=== PATIENT | male | born 1965 | race Caucasian/White ===

== ENCOUNTER 2021-11-16 12:47 | Observation (INO) ==
[2021-11-16 14:11] LABS: Basophils % 0.5 %; Eosinophils # 0.1 K/mcL (0.0-0.6); Eosinophils % 1.3 %; Hematocrit 46.6 % (37.5-50.1); Hemoglobin 15.9 g/dL (12.9-16.9); Immature Granulocytes % 0.4 % (0-4); Lymphocytes # 1.9 K/mcL (0.6-4.6); Lymphocytes % 23.4 %; Mean Corpuscular HGB Conc 34.1 g/dL (31.6-35.5); Mean Corpuscular Hemoglobin 30.8 pg (28.0-33.3); Mean Corpuscular Volume 90.1 fL (83.0-100.0); Mean Platelet Volume 9.6 fL (9.4-12.4); Monocytes # 0.6 K/mcL (0.0-1.3); Monocytes % 7.9 %; Neutrophils # 5.3 K/mcL (1.6-8.9); Platelet Count 236 K/mcL (140-400); Red Blood Count 5.17 M/mcL (4.19-5.50); Red Cell Distribution Width 12.9 % (11.5-14.5); Segmented Neutrophils % 66.5 %
[2021-11-16 14:40] LABS: BUN/Creatinine Ratio 19 (6-26); Blood Urea Nitrogen 20 mg/dL (6-20); Calcium 9.8 mg/dL (8.6-10.3); Carbon Dioxide 21 mEq/L (23-29); Chloride 103 mEq/L (98-107); Glucose 129 mg/dL (70-105); Osmolality,Calculated 286 (280-300); Potassium 3.9 mEq/L (3.5-5.1); Sodium 136 mEq/L (136-145); Troponin I < 0.03 ng/mL (< 0.04); eGFR For African Americans > 60 (> 60); eGFR For Non-African Americans > 60 (> 60)
[2021-11-16] MEDS ORDERED: Ketorolac 30 MG/ML VIAL IVP ONE (16:02)
[2021-11-16] MEDS ORDERED: Metoclopramide 10 MG/2 ML VIAL IVP ONE (16:02)
[2021-11-16] MEDS ORDERED: Isovue-370 500 ML BOTTLE IVP ONE (16:02)
[2021-11-16] MEDS ORDERED: 0.9 % Sodium Chloride 1,000 ML IV ONE (16:08)
[2021-11-16] MEDS ORDERED: Ondansetron 4 MG/2 ML VIAL IVP PRN (18:04)
[2021-11-16] MEDS ORDERED: Perflutren Lipid Microsphere 1.3 ML in 0.9 % Sodium Chloride 8.7 ML IVP PRN (18:04)
[2021-11-16] MEDS ORDERED: Nitroglycerin 0.4 MG TAB.SUBL SL PRN (18:04)
[2021-11-16] MEDS ORDERED: Naloxone 0.4 MG/ML INJ IVP PRN (18:04)
[2021-11-16] MEDS: Metoprolol XL (24 HR) Succ 25 MG TAB.ER.24H PO SCH (21:07)
[2021-11-16] MEDS: Melatonin 3 MG TABLET PO PRN (21:56)
[2021-11-17 01:23] LABS: Basophils % 0.1 %; Eosinophils % 0.1 %; Hemoglobin 14.6 g/dL (12.9-16.9); Immature Granulocytes % 0.7 % (0-4); Lymphocytes # 0.7 K/mcL (0.6-4.6); Lymphocytes % 10.4 %; Mean Corpuscular Hemoglobin 30.4 pg (28.0-33.3); Mean Corpuscular Volume 89.6 fL (83.0-100.0); Mean Platelet Volume 9.9 fL (9.4-12.4); Monocytes # 0.1 K/mcL (0.0-1.3); Neutrophils # 6.2 K/mcL (1.6-8.9); Platelet Count 211 K/mcL (140-400); Red Cell Distribution Width 12.8 % (11.5-14.5); Segmented Neutrophils % 86.7 %; White Blood Count 7.1 K/mcL (4.3-11.1)
[2021-11-17 01:33] LABS: INR 1.1; Prothrombin Time 11.9 Seconds (9.4-12.1)
[2021-11-17 01:41] LABS: Alanine Aminotransferase 28 Units/L (7-52); Albumin 4.2 g/dL (3.5-5.7); Albumin/Globulin Ratio 1.8 (1.1-2.2); Alkaline Phosphatase 47 Units/L (34-104); Aspartate Amino Transferase 15 Units/L (13-39); BUN/Creatinine Ratio 19 (6-26); Bilirubin,Total 0.3 mg/dL (0.3-1.0); Blood Urea Nitrogen 23 mg/dL (6-20); Carbon Dioxide 23 mEq/L (23-29); Chloride 103 mEq/L (98-107); Globulin 2.3 g/dL (2.4-3.5); Glucose 309 mg/dL (70-105); Magnesium 2.1 mg/dL (1.6-2.6); Osmolality,Calculated 289 (280-300); Potassium 4.6 mEq/L (3.5-5.1); Sodium 132 mEq/L (136-145); Total Protein 6.5 g/dL (6.4-8.9); eGFR For African Americans > 60 (> 60); eGFR For Non-African Americans > 60 (> 60)
[2021-11-17] MEDS ORDERED: Nicotine 21 MG PATCH.TD24 TD SCH (09:00)
[2021-11-17] MEDS ORDERED: Regadenoson 0.4 MG/5 ML SYRINGE IVP ONE (09:55)
[2021-11-17] MEDS: hydroCHLOROthiazide 25 MG TABLET PO SCH (11:22)
[2021-11-17] MEDS: amLODIPine 5 MG TABLET PO SCH (11:22)
[2021-11-17] MEDS: Metoprolol XL (24 HR) Succ 25 MG TAB.ER.24H PO SCH (11:22)
[2021-11-17] MEDS: Aspirin 81 MG TAB.CHEW PO SCH (11:23)
[2021-11-17 15:13] VITALS: O2SAT 96
[2021-11-17] MEDS: *HR* Heparin 5,000 UNIT/ML VIAL SQ SCH (17:13)
[2021-11-17] MEDS: Melatonin 3 MG TABLET PO PRN (20:41)
[2021-11-18] MEDS: *HR* Heparin 5,000 UNIT/ML VIAL SQ SCH (05:02)
[2021-11-18] MEDS: hydroCHLOROthiazide 25 MG TABLET PO SCH (08:44)
[2021-11-18] MEDS: Aspirin 81 MG TAB.CHEW PO SCH (08:44)
[2021-11-18] MEDS: Metoprolol XL (24 HR) Succ 25 MG TAB.ER.24H PO SCH (08:44)
[2021-11-18] MEDS: amLODIPine 5 MG TABLET PO SCH (08:44)
[2021-11-18 09:02] VITALS: BP 147/80; PULSE 80; TEMP 98.6
[2021-11-18 12:34] LABS: Estimated Average Glucose 131 mg/dl; Hemoglobin A1C 6.2 %
== END 2021-11-18 10:50 | disposition home or self-care (01) ==
LOC: 3BNU 12:47 → EMEROOARM 12:47 → SUATTDRO 18:34 → 3BNU 19:29
PROVIDERS: ADMIT Hospitalist; ATTEND Internal Medicine